=== PATIENT | female | born 1960 | race African-American/Black ===

== ENCOUNTER 2020-10-11 18:35 | Emergency (ER) | payer OTHER ==
[~2020-10-11] VITALS: Ht 157.5 cm; Wt 66.7 kg
[2020-10-11] MEDS ORDERED: PROAIR HFA8.5 GM INH (18:48)
[2020-10-11 19:28] LABS: ABSOLUTE EOSINOPHILS 0.2 thou/uL (0.0-0.7); ABSOLUTE LYMPHOCYTES 1.9 thou/uL (0.8-5.3); ABSOLUTE MONOCYTES 0.8 thou/uL (0.0-1.2); ABSOLUTE NEUTROPHILS 4.3 thou/uL (1.6-8.1); BASOPHILS 0.6 %; EOSINOPHILS 2.3 %; HEMATOCRIT 39.3 % (37.0-47.0); HEMOGLOBIN 12.9 gm/dL (12.0-15.0); LYMPHOCYTES 26.1 %; MCH 27.8 pg (26.0-34.0); MCHC 32.8 g/dL (28.0-37.0); MONOCYTES 10.8 %; MPV 6.4 fl. (7.2-11.1); NUCLEATED RBCS 0 /100WBC; PLATELET COUNT* 419 thou/uL (150-400); POLYS 60.2 %; RBC 4.63 mil/uL (4.20-5.00); RDW-CV 13.8 % (10.5-14.5); WBC 7.1 thou/uL (4.0-11.0)
[2020-10-11 19:36] LABS: CREATININE 1.4 mg/dL (0.6-1.3); POTASSIUM 3.4 mmol/L (3.5-5.1)
[2020-10-11 19:41] LABS: ALBUMIN 3.5 g/dL (3.4-5.0); TOTAL BILIRUBIN 0.6 mg/dL (<0.1-1.0); TOTAL PROTEIN 8.2 g/dL (6.4-8.2)
[2020-10-11] MEDS ORDERED: VISTARIL 25 MG25 M1 PO (19:53)
[2020-10-11] MEDS ORDERED: LEXAPRO 10 MG T10 M1 PO (19:53)
[2020-10-11 20:09] VITALS: BP 127/74
== END 2020-10-11 20:10 | disposition left against medical advice (07) ==
LOC: M.ERS 18:35
PROVIDERS: Physician Assistant
DX: F41.9 Anxiety disorder, unspecified (principal); F32.9 Major depressive disorder, single episode, unspecified; I10 Essential (primary) hypertension; R20.0 Anesthesia of skin; R20.2 Paresthesia of skin; J45.909 Unspecified asthma, uncomplicated